=== PATIENT | male | born 1990 | race Caucasian/White ===

== ENCOUNTER 2019-03-03 04:35 | Emergency (ER) | payer MEDICAID ==
[~2019-03-03] VITALS: Ht 185.4 cm; Wt 83.0 kg
[2019-03-03] MEDS ORDERED: DICYCLOMINE 10 MG/ML, 2ML IM ONE (05:30)
--- NOTE | 2019-03-03 05:31 | NUR ---
Patient into room, concerned over abdominal pain. Reports can't remember when the last time he had a bowel movement was. Reports feeling the need but being unable. Patient abdomen diffusely tender. No distension and abdomen is soft. Patient reported needing to urinate. Provided with urine sample cup and reviewed clean catch instructions. Patient verbalized understanding. Provider to bedside, assessment complete. RN returned to collect urine sample. Collected per protocol and sent to lab. electronic train control technician at bedside, patient transported out of room. Awaiting lab, abdominal ultrasound results.
[2019-03-03 05:50] LABS: MICROSCOPIC INDICATED
[2019-03-03] MEDS ORDERED: DICYCLOMINE 10 MG/ML, 2ML ONE (06:04)
[2019-03-03 06:06] VITALS: BP 100/48
[2019-03-03 06:09] LABS: BASOPHILS # (AUTO) 0.05 x10^3/uL (0-0.1); BASOPHILS % (AUTO) 1 % (0-1); EOSINOPHILS # (AUTO) 0.09 x10^3/uL (0-0.4); EOSINOPHILS % (AUTO) 1 % (1-7); LYMPHOCYTES # (AUTO) 2.47 x10^3/uL (1-3.4); LYMPHOCYTES % (AUTO) 30 % (22-44); MD NO; MEAN CORPUSCULAR HEMOGLOBIN 30.6 pg (27.5-34.5); MEAN CORPUSCULAR HGB CONC 34.8 g/dL (33.2-36.2); MEAN CORPUSCULAR VOLUME 87.9 fL (81-97); MEAN PLATELET VOLUME 7.5 fL (7.4-10.4); MONOCYTES # (AUTO) 0.51 x10^3/uL (0.2-0.8); MONOCYTES % (AUTO) 6 % (2-9); NEUTROPHILS % (AUTO) 62 % (42-75); PLATELET COUNT 270 x10^3/uL (130-400); RED BLOOD COUNT 5.07 x10^6/uL (4.38-5.82); RED CELL DISTRIBUTION WIDTH 12.6 % (9.4-14.8)
--- NOTE | 2019-03-03 06:09 | NUR ---
Patient back into room, rn to bedside, updated vital signs. VSS. Administered ordered medication (see MAR) patient reported taking the medication as prescribed but relief from medication has ceased to work. Patient agreeable to taking the medication, will return to assess affect.
[2019-03-03 06:11] LABS: CULTURE INDICATED? NO
[2019-03-03 06:20] LABS: ALANINE AMINOTRANSFERASE 32 U/L (12-78); ALBUMIN 4.2 g/dL (3.4-5.0); ANION GAP 6 mmol/L (5-15); CALCIUM 8.7 mg/dL (8.5-10.1); CHLORIDE 108 mmol/L (98-107); CREATININE 0.84 mg/dL (0.7-1.3)
[2019-03-03 06:22] LABS: ALKALINE PHOSPHATASE 51 U/L (45-117); BILIRUBIN,TOTAL 0.5 mg/dL (0.2-1.0); TOTAL PROTEIN 7.2 g/dL (6.4-8.2)
--- NOTE | 2019-03-03 06:51 | NUR ---
RECEIVED REPORT FROM [facility]
--- NOTE | 2019-03-03 07:30 | NUR ---
SLEEPING WHILE AWAITING DISPO
== END 2019-03-03 08:25 | disposition home or self-care (01) ==
LOC: ED 06:24
DX: R31.29 Other microscopic hematuria (principal); R10.84 Generalized abdominal pain
CPT/HCPCS: 36415; 74021; 76770; 80053; 81001; 83690; 85025; 96372; 99284; J0500